=== PATIENT | male | born 1985 | race Caucasian/White ===

== ENCOUNTER 2019-08-09 05:19 | Inpatient (IN) ==
--- NOTE | 2019-08-09 06:15 | PROVIDER DOCUMENTATION ---
HPI-Abdominal Pain/GI Problem - General Chief Complaint: General Adult Stated Complaint: HEADACHE Time Seen by Provider: 08/09/19 06:09 Source: patient Allergies/Adverse Reactions: Patient Allergies Allergy/AdvReac Type Severity Reaction Status Date / Time No Known Allergies Allergy Verified 08/09/19 06:24 Home Medications: Home Medication List Medication Instructions Recorded Confirmed Last Taken Type Amphetamine Salts [Adderall] 20 mg PO BID 08/09/19 08/09/19 Unknown History - History of Present Illness-ABD Nature of Presenting Problems: Patient is a 34 year old white male complaining of nausea,vomiting, and diarrhea for past 3-4 days. patient noticed that he is now itching all over and his eyes look yellow. Denies abdominal pain. Review of Systems - Adult - REVIEW OF SYSTEMS - ADULT Constitutional: denies: chills, fever Eyes: reports: see HPI Ears, Nose, Mouth & Throat: reports: no symptoms reported Cardiovascular: denies: chest pain Respiratory: denies: shortness of breath Gastrointestinal: reports: diarrhea, nausea, vomiting. denies: abdominal pain Genitourinary: denies: dysuria Musculoskeletal: reports: no symptoms reported Integumentary: reports: see HPI, itching Neurological: reports: headache/migraines Psychiatric: reports: anxiety Endocrine: reports: no symptoms reported Hematologic/Lymphatic: reports: no symptoms reported Allergic/Immunologic: reports: no symptoms reported All Other Systems: Reviewed and Negative Past History - Adult - PAST MEDICAL HISTORY-ADULT Review of Records: reports: Old Records Reviewed, Nursing Assessment Review, Medications Reviewed, Social history reviewed & non-contributory. Major Childhood Illnesses: reports: denies history Cardiovascular: reports: HTN, hyperlipidemia Gastrointestinal: reports: denies history Genitourinary: reports: denies history Musculoskeletal: reports: denies history Neurological: reports: denies history Psychiatric: reports: depression, other (ADHD) - PRIOR SURGERIES/PROCEDURES Surgical/Procedure History: reports: hernia repair, orthopedic (extremity) (shoulder sx) - IMMUNIZATION STATUS Childhood Immunizations: See Nurse Assessment Flu Vaccine: See Nurse Assessment - FAMILY HISTORY Family History: reviewed, not pertinent - SOCIAL HISTORY Smoking: less than 1 pack/day Substance Use: denies Alcohol Use Frequency: occasionally Living Situation: family Physical Exam-General - PHYSICAL EXAM-ADULT Initial Vital Signs Reviewed: Yes - CONSTITUTIONAL General Appearance: alert, no apparent distress - EYES Eyes: PERRL/EOMI, scleral icterus - HEAD, EARS, NOSE, MOUTH & THROAT HENMT: normocephalic/atraumatic, moist mucous membranes - NECK Neck: non-tender, full range of motion, supple - RESPIRATORY Respiratory: lungs clear - CARDIOVASCULAR Cardiovascular: regular rate, rhythm - GASTROINTESTINAL (ABDOMEN) Abdominal Exam: normal bowel sounds, non tender, soft - MUSCULOSKELETAL Back Exam: no CVA tenderness, no vertebral tenderness Extremity: normal range of motion, non-tender - SKIN Integumentary: normal turgor, warm/dry - NEUROLOGIC Neurologic: grossly normal - PSYCHIATRIC Psych/Mental Status: normal thought content, oriented x 3, anxious Progress - PLAN OF CARE/RESULTS Progress/Plan/Lab Results: Vital Signs - 8 hr 08/09/19 05:49 Temperature 97.6 F Pulse Rate 78 Respiratory Rate 18 Blood Pressure 136/95 O2 Sat by Pulse Oximetry 98 Result Diagrams: 08/10/19 06:50 08/10/19 06:50 - CONSULTS/PCP/HOSPITALIST Notification #1 *Consult/PCP/Hospitalist*: Dr Salazar Time Discussed: 09:45 Consult Disposition: Admit - CHANGE OF SHIFT REPORT (ED Provider) 1 Report Given and Care Transferred to:: Dr. Angel Time of Transfer: 07:00 Items Pending: Labs Departure - Departure Date of Disposition Decision: 08/09/19 Time of Disposition Decision: 10:17 DIAGNOSIS: Transaminitis, Cholecystitis, Nausea and vomiting, Jaundice Disposition: ADMITTED INPATIENT 09 Certified Medical Emergency: Emergent Condition: Stable - Critical Care Note This patient required my direct & personal management of CC.: No Attestation - Physician/ JOHN Attestation Patient care was provided by Advanced Practice Provider:: No The physician spent face to face time with patient:: Yes Advanced Practice Provider documentation review:: Supervising physician onsite and consulted in the evaluation and care of this patient. The physician did have a face to face encounter with the patient.
[2019-08-09] MEDS ORDERED: NS 1,000 ML IV ONE (06:56)
[2019-08-09] MEDS ORDERED: ZOFRAN IV ONE (06:56)
[2019-08-09 07:26] LABS: BASO# 0.03 X1000 (0.0-0.2); BASO% 0.7 % (0.0-0.8); EOS# 0.07 X1000 (0.0-0.7); EOS% 1.7 % (0.0-10.0); HEMATOCRIT 47.2 % (42.0-52.0); HEMOGLOBIN 15.3 g/dL (14.0-18.0); IMM GRAN# 0.01 X1000 (0.0-0.04); IMM GRAN% 0.2 % (0.0-0.5); LYMPH# 1.12 X1000 (1.2-3.4); LYMPH% 26.7 % (20.5-51.1); MCH 29.4 PG (27-31); MCHC 32.4 g/dL (33-37); MCV 90.8 FL (81-99); MONO# 0.67 X1000 (0.11-0.59); MPV 9.7 FL (7.4-10.4); NEUT# 2.29 X1000 (1.4-6.5); NEUT% 54.7 % (42.2-75.2); PLT 237 X1000 (130-400); RDW 14.4 % (11.5-14.5); WBC 4.19 X1000 (4.8-10.8)
[2019-08-09 07:29] LABS: INR 0.9; PROTIME 12.6 Seconds (11.0-16.0)
[2019-08-09 07:30] LABS: PTT 32.3 Seconds (22.3-41.8)
[2019-08-09 07:37] LABS: AGAP 11; ALBUMIN 3.6 g/dL (3.5-5.0); ALKALINE PHOSPHATASE 164 U/L (32-122); BUN 9 mg/dL (8-22); CALCIUM 8.9 mg/dL (8.8-10.2); CHLORIDE 102 mmol/L (98-107); COSMO 276; CREATININE 0.7 mg/dL (0.7-1.2); ESTIMATED GFR > 60; GLUCOSE 92 mg/dL (70-104); POTASSIUM 4.5 mmol/L (3.5-5.1); SODIUM 139 mmol/L (136-145); TCO2 26 mmol/L (25-35); TOTAL PROTEIN 7.9 g/dL (6.3-8.3)
[2019-08-09 07:46] LABS: GOT 1830 U/L (10-34); GPT 2816 U/L (10-44)
[2019-08-09 08:56] LABS: URINE SOURCE CLEAN CATCH
--- NOTE | 2019-08-09 08:56 | Diag Imaging Result Doc PS360 ---
EXAM: CT ABD/PELVIS W/IV CONT ONLY HISTORY: jaundiced, elevated tbili TECHNIQUE: This exam was performed using automated exposure control, adjustment of mA or kV according to patient size, and/or use of iterative reconstruction technique. COMPARISON: None. FINDINGS: Lung bases: There is linear atelectasis or scarring posterior left lower lobe. Hepatobiliary: Normal liver attenuation. No intrahepatic or extrahepatic biliary ductal dilatation is identified. There is mild periportal edema. Mild hepatomegaly. There is a hyperdense somewhat serpiginous filling defect within the gallbladder. No calcified gallstones. There are prominent periportal lymph nodes. No suspicious masses are appreciated. There is a small amount of free fluid within the anterior pararenal space. There is fluid or soft tissue stranding surrounding the descending duodenum. Spleen is enlarged measuring 14.3 cm maximal dimension. No focal splenic masses are appreciated. Pancreas/Adrenal glands/: Normal size and enhancement. No cysts or solid masses are appreciated. Kidneys: No nephrolithiasis or hydronephrosis is appreciated. Normal bilateral enhancement. No suspicious masses. Retroperitoneum: Normal caliber aorta. No lymphadenopathy. Bowel/Mesentery: There prominent gastrohepatic ligament lymph nodes. Normal caliber small and large bowel loops. No evidence for obstruction. . No mesenteric lymphadenopathy is appreciated. The mesentery. Vasculature appears congested. Appendix: Normal. No evidence for acute appendicitis. Pelvis: Reproductive organs show no acute abnormality. There is evidence of prior inguinal hernia repair Urinary bladder is unremarkable. There is a bulging vertebral body endplate endplate/disc calcification L1/L2 with spinal stenosis. There are bridging osteophytes bilateral sacroiliac joints. IMPRESSION: 1.Mild hepatomegaly. Splenomegaly. Suspect portal hypertension. 2.Filling defect with in the gallbladder. Correlate with ultrasound. 3.Small amount of free fluid within the anterior pararenal space. 4.Periduodenal free fluid versus duodenitis. 5.Prominent periportal and gastrohepatic ligament lymph nodes. 6.Congested vessels within the mesentery. 7.Lumbar disc disease L1/L2 with spinal stenosis. Electronically signed by Rubina Jackson 08/09/2019 8:54 AM
[2019-08-09 09:04] LABS: BILIRUBIN URINE SMALL (NEGATIVE); BLOOD URINE NEGATIVE (NEGATIVE); COLOR YELLOW; GLUCOSE URINE NEGATIVE (NEGATIVE); KETONE URINE NEGATIVE (NEGATIVE); LEUKOCYTES URINE NEGATIVE (NEGATIVE); NITRITE URINE NEGATIVE (NEGATIVE); PH URINE 6.5; PROTEIN URINE TRACE mg/dL (NEGATIVE); SP GRAVITY URINE 1.051; TURBIDITY URINE CLEAR (CLEAR); UROBILINOGEN URINE NORMAL (NORMAL)
[2019-08-09 09:06] LABS: UR EPITHELIAL CELLS <10 /HPF (<10); URINE RBC <10 /HPF (<10); URINE WBC <10 /HPF (<10)
[2019-08-09 09:19] LABS: UR AMPHETAMINES QUAL NONE DETECTED (NONE DETECT); UR BARBITUATES QUAL NONE DETECTED (NONE DETECT); UR BENZODIAZEPIN QUAL NONE DETECTED (NONE DETECT); UR CANNABINOIDS QUAL PRESUMPTIVE POSITIVE (NONE DETECT); UR COCAINE QUAL NONE DETECTED (NONE DETECT); UR METHADONE QUAL NONE DETECTED (NONE DETECT); UR METHAMPHETAMINE QUAL NONE DETECTED (NONE DETECT); UR OPIATES QUAL NONE DETECTED (NONE DETECT); UR OXYCODONE QUAL NONE DETECTED (NONE DETECT); UR PCP QUAL NONE DETECTED (NONE DETECT); UR PROPOXYPHENE QUAL NONE DETECTED (NONE DETECT); UR TCA QUAL NONE DETECTED (NONE DETECT)
--- NOTE | 2019-08-09 09:35 | Diag Imaging Result Doc PS360 ---
US GB < RUQ (LIMITED) - 08/09/2019 INDICATION: jaundiced, elevated tbili TECHNIQUE: Rcih scale, color Doppler, and duplex evaluation of the abdomen was performed. Standard protocol. COMPARISON: None FINDINGS: The liver appears normal in size and echotexture. Portal triads appear slightly prominent which may be related to hepatitis. Correlate clinically. There are at least three small hyperechoic liver lesions. The largest measures 1.2 x 1.3 x 1.2 cm.. The IVC and aorta appear normal. The pancreas is obscured by bowel gas artifact. The gallbladder appears somewhat contracted. The gallbladder fossa appears complex with echogenic material and minimal simple fluid appreciated. No calcified gallstones are identified. The common bile duct measures 5 mm. The portal vein is patent with hepatopetal flow. The right kidney appears normal. There is no hydronephrosis. IMPRESSION: 1.Markedly abnormal gallbladder fossa with complex echoes, essentially no simple appearing fluid, and no definite stones. Findings are worrisome for atypical cholecystitis. Correlate clinically. Recommend surgical consultation. 2.Nonspecific small echogenic liver lesions.. 3.Prominent periportal triads may be seen with hepatitis. Correlate clinically. Electronically signed by Rubina Jackson 08/09/2019 9:32 AM
[2019-08-09] MEDS ORDERED: ZOSYN 4.5 GM in NS 100 ML IV SCH (09:45)
[2019-08-09] MEDS ORDERED: ZOFRAN IV PRN (10:14)
[2019-08-09] MEDS: ZOSYN 3.375 GM in NS 50 ML IV SCH ×2 (10:53→16:43)
[2019-08-09] MEDS ORDERED: SODIUM CHLORIDE 0.9% INJ SCH (13:00)
--- NOTE | 2019-08-09 14:15 | HISTORY AND PHYSICAL ---
CHIEF COMPLAINT: Generalized itching, headache, nausea, vomiting, and diarrhea with terrance-colored stools. HISTORY OF PRESENT ILLNESS: This is a 34-year-old gentleman with a history of ADHD and prior elevation of LFTs. He comes in complaining of having a headache that he feels could be sinusitis that he states is behind his eyeballs, feels like a pressure type pain. He has had some increased postnasal drip. He states that he has also had nausea, vomiting, anorexia, and just a feeling of fullness in his abdomen. He reports being told by His ,about 3 days ago, that his eyes were yellow. He reports loose stools that were terrance-colored over the last 48 hours. He denied any abdominal pain, any black or bloody vomitus or stools. The patient states that in the last 3 to 4 years, he saw his then primary care provider, Dr. Alexander Scott, and he was put on a statin, but he stated that his liver enzymes elevated. Therefore, the statin was DCd. He has not followed up with a physician since. PAST MEDICAL HISTORY: 1. ADHD. 2. Hypertension. 3. Hyperlipidemia. 4. History of migraines. 5. Medical noncompliance. PAST SURGICAL HISTORY: Hernia repair and shoulder surgery. SOCIAL HISTORY: He smokes about 1/2 pack a day. He drinks alcohol on a social basis with his last drink being almost 2 weeks ago. He denies any illicit drug use, although his urine drug screen was positive for cannabinoids. He is . 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 ALLERGIES: No known drug allergies. HOME MEDICATIONS: He is taking none at the present. He states he was recently prescribed Adderall 20 mg p.o. b.i.d., although he has not started it yet. FAMILY HISTORY: Positive for diabetes in his sisters and hypertension in his parents. REVIEW OF SYSTEMS: Discussed with the patient with pertinent positives stated in the HPI. He denied any syncope or dizziness, any chest pain or palpitations, shortness of breath or cough, any fevers or chills, any constipation, any black or bloody vomitus or stools, any hematuria, dysuria, frequency, urgency. PHYSICAL EXAMINATION: GENERAL: This is a 34-year-old gentleman who is lying on the stretcher in the emergency room in no distress. VITAL SIGNS: Blood pressure is 149/99 with heart rate of 76, respirations are 18, temperature is 98.2 degrees with room air saturations 98% to 99%. HEENT: Eyes: Pupils are equal, round, react to light. EOMs are intact. Sclerae are anicteric. HEENT: Head is normocephalic, atraumatic. Mucous membranes are moist. NECK: Supple. Trachea midline. No JVD. CARDIOVASCULAR: Regular rate and rhythm. S1 and S2 appreciated. EXTREMITIES: He has no lower extremity edema. Calves are reported nontender bilaterally with peripheral pulses palpable x4 extremities. PULMONARY: Breath sounds are clear with no increased work of breathing noted. Chest rises and falls symmetric respiration. Chest wall is nontender to palpation gastrointestinal. GASTROINTESTINAL: Abdomen is soft, nontender, nondistended with bowel sounds in all 4 quadrants. NEUROLOGIC: He is alert and oriented x3. SKIN: Warm and dry. LABS: WBC is 4.1 with hemoglobin 15.3, hematocrit 47.2, platelets of 237,000. Sodium is 139, potassium 4.5, BUN 9, creatinine 0.7 with a glucose of 92. Total bilirubin is 5.6 with AST of 1830, ALT 2816, with alkaline phosphatase 164. Urine drug screen is presumptive positive for cannabinoids. Blood alcohol revealed none detected. DIAGNOSTICS: 1. CT of the abdomen and pelvis revealed mild hepatomegaly and splenomegaly with suspected portal hypertension, filling defect in the gallbladder. Small amount of free fluid within the anterior pararenal space, magno-duodenal free fluid versus duodenitis. Prominent periportal and gastrohepatic ligament lymph nodes, congested mesenteric vessels, spinal stenosis at L1 and L2. 2. Abdominal ultrasound, markedly abnormal gallbladder fossa with complete complex echoes, essentially no simple appearing fluid and no definite stones. Findings are worrisome for atypical cholecystitis. There at least 3 small hyperechoic liver lesions. The largest measures 1.2 x 1.3 x 1.2. 3. Prominent periportal triad heads may be seen with hepatitis. ASSESSMENT AND PLAN: 1. Elevated liver function tests. 2. Possible atypical cholecystitis. 3. Nausea and vomiting. 4. Jaundice. 5. Questionable hepatitis on ultrasound. 6. Liver masses x3. PLAN: 1. The patient will be n.p.o. 2. HIDA scan will be ordered. 3. We will obtain blood cultures. Start Zosyn for antibiotic coverage. 4. Consult Gastroenterology. 5. Check a CBC and CMP in the morning. 6. We will continue IV hydration 7. Zofran for nausea. 8. Protonix IV The plan was discussed with Dr. Salazar. Further treatments pending hospital course. The patient will be admitted and transferred to [facility] [place] for GI following. Dictated by PALMIRA Aponte for Elan Vasquez MD cc: PALMIRA Aponte MD [facility]
--- NOTE | 2019-08-09 15:15 | Diag Imaging Result Doc PS360 ---
EXAM: HIDA SCAN W/O EJECT. FRACTION 08/09/2019 HISTORY: acute cholecystitis TECHNIQUE: Hepatobiliary scan, 5.4 mCi of technetium 99m Choletec COMMENT: There is no excretion of activity into the biliary tract or gallbladder at one hour 30 minutes. Given the appearance of the gallbladder and common bile duct on ultrasound and CT and the periportal edema seen on the CT scan, the possibility of hepatitis and cholestatic jaundice is suggested. IMPRESSION: No visualization of activity outside of the liver. The findings were discussed with Elan Salazar MD at 08/09/2019 3:13 PM. Electronically signed by Chico Tate 08/09/2019 3:13 PM
[2019-08-09] MEDS: NS 1,000 ML IV SCH (16:43)
[2019-08-09] MEDS: PROTONIX IV SCH (16:43)
[2019-08-09] MEDS ORDERED: MOTRIN PO ONE (17:03)
--- NOTE | 2019-08-09 21:54 | PROGRESS NOTE ---
DATE: 08/09/2019 INTERVAL HISTORY: Mr. Rachel was transferred from [facility] for evaluation of abnormal liver function test. SUBJECTIVE: Mr. Rachel denies new complaints except headache, retro-orbital pain, occasional nausea and generalized feeling of unwell. VITALS: Temperature of 97.6 degrees, pulse 73, respiratory 18, blood pressure 141/93. He is saturating 98% on room air. PHYSICAL EXAMINATION: General: Not in acute distress. HEENT: Oral cavity is moist. He has marked scleral icterus. Lungs: Air entry bilaterally equal. No wheeze, rhonchi or crackles. Heart: S1 normal. No murmur or gallop. Abdomen: Soft, nontender. Extremity: No lower extremity edema. Neurologic: He is alert orient x3. LABS: Suggestive of total bilirubin of 5.6, direct of 6.1, though it was collected after initial blood test. AST of 1800, ALT of 2800. Urine was positive for bilirubin. Urine cannabis was positive. The patient denies using any cannabis substances. ASSESSMENT AND PLAN: Acute liver injury leading to acute hepatitis, cholestatic pattern with elevated direct bilirubin. The patient denies using intravenous recreational substances, taking herbal medications, taking [id number] medicines, any muscle supplements or protein supplements. He recently traveled to [place] in June 2019 but denies having sick contacts around him. He denies any known history of hepatitis in the past, though, previously he did have a slightly abnormal liver function test about a couple of years ago, though, in our system his liver function tests in 2017 were normal. PLAN: Follow up hepatitis panel, antinuclear antibody, anti-smooth muscle antibody, ultrasound suggested intrahepatic cholestatic pattern. Depending on the course, HIV testing should be considered. I will follow up with liver function test tomorrow. Continue IV fluids. Plan of care discussed with Mr. Rachel and his questions have been answered. cc: MD MIREILLE Stephens
[2019-08-10] MEDS: NS 1,000 ML IV SCH ×2 (06:37→21:20)
[2019-08-10 07:52] LABS: BASO# 0.04 X1000 (0.0-0.2); BASO% 0.9 % (0.0-0.8); EOS% 2.2 % (0.0-10.0); HEMOGLOBIN 14.7 g/dL (14.0-18.0); LYMPH% 28.9 % (20.5-51.1); MCH 29.1 PG (27-31); MCV 91.1 FL (81-99); MONO# 0.72 X1000 (0.11-0.59); MPV 9.8 FL (7.4-10.4); NEUT# 2.34 X1000 (1.4-6.5); PLT 239 X1000 (130-400); RBC 5.05 XMIL (4.7-6.1); RDW 14.8 % (11.5-14.5)
[2019-08-10 08:15] LABS: AGAP 10; ALB/GLOB RATIO 0.9; ALBUMIN 3.4 g/dL (3.5-5.0); ALKALINE PHOSPHATASE 158 U/L (32-122); BUN 9 mg/dL (8-22); CALCIUM 8.9 mg/dL (8.8-10.2); CHLORIDE 101 mmol/L (98-107); COSMO 271; CREATININE 0.9 mg/dL (0.7-1.2); ESTIMATED GFR > 60; GLUCOSE 74 mg/dL (70-104); POTASSIUM 4.5 mmol/L (3.5-5.1); SODIUM 137 mmol/L (136-145); TCO2 26 mmol/L (25-35)
[2019-08-10 08:41] LABS: GOT 1104 U/L (10-34); GPT 2075 U/L (10-44)
--- NOTE | 2019-08-10 12:42 | Diag Imaging Result Doc PS360 ---
EXAM: MRI MRCP (ABD W/O CONTRAST) 08/10/2019 HISTORY: Abnormal LFTs, HIDA shows no excretion in CBD TECHNIQUE: Axial T2, in and out of phase T1, water 3-D, coronal T2 and water 3-D and radial T2. COMMENT: There is an apparent cyst in the posterior right hepatic lobe. There is another anteriorly on image 17 of the axial T2 series. There is no evidence of dilatation of the pancreatic duct which measures under 2 mm in diameter. The common bile duct measures less than 4 mm and the common hepatic duct has a maximum caliber of 5 mm. There is no evidence of filling defects. There is a small amount of ascites in the right paracolic gutter. IMPRESSION: No evidence of biliary obstruction. Other nonacute findings as described above. Electronically signed by Chico Tate 08/10/2019 12:39 PM
[2019-08-10] MEDS: PROTONIX IV SCH (13:30)
--- NOTE | 2019-08-10 13:50 | GASTROENTEROLOGY CONSULTATION ---
DATE: 08/10/2019 REASON FOR CONSULTATION: Elevated LFTs. HISTORY OF PRESENT ILLNESS: Mr. Rachel is a 34-year-old male with a history of hypertension, ADHD, anxiety and depression. He was at [facility] yesterday and was later sent to [facility]. He complained that 5 days back he noticed that his urine was dark orange in color. He was fatigued, weak, having migraine type headaches and on Friday he noticed that his stools were storey colored. He also started noticing that his eyes were yellow in color. The patient denies any abdominal pain. He did mention that he had one episode of nausea and vomiting when he was in the shower and it was just whatever food he had eaten had come out. The patient did mention that he had a cut on his right forearm from the aimee corner of the bookshelf, but he said he checked with his doctor andit was not anything infectious. The patient mentioned that somewhere around 2 years back, he was put on a statin due to his high cholesterol, but he stated that his liver enzymes started to get elevated and then he had to stop taking the statins. He has not followed up for any of the blood work with his doctor of the GI doctor. The patient does mention that sometimes he feels like his stomach is absolutely full. He has denied any constipation. He says his bowel movements are regular. He has denied noticing any blood in his stool or blood in his vomit. PAST MEDICAL HISTORY: Hypertension, ADHD, high cholesterol, anxiety, depression, history of migraines. PAST SURGICAL HISTORY: Two hernia repairs and one right shoulder repair. FAMILY HISTORY: Positive for diabetes and hypertension. SOCIAL HISTORY: The patient is single, lives with his girlfriend. Has 1 kid. Smokes pot once a day, or 4 to 5 cigarettes on a daily basis. Drinks alcohol occasionally. He works at [employer]. He has denied doing any IV drug use. ALLERGIES: No known drug allergies. HOME MEDICATIONS: Adderall 20 mg p.o. twice a day. REVIEW OF SYSTEMS: As per HPI. Otherwise, 12 point review of system is negative. PHYSICAL EXAMINATION: Vital Signs: Temperature 98.3 degrees, pulse 87, blood pressure 142/96, oxygen saturation 100% on room air. The patient's weight is 190 pounds, BMI is 27.3 kg/m2. General: He is alert, oriented x3. Answering questions appropriately and in no acute distress. HEENT: Pale conjunctivae. Sclerae icterus. PERRL. Neck: Supple. Lungs: Clear to auscultation. Cardiovascular: Regular rate and rhythm. Abdomen: Soft, nontender, mildly distended. Active bowel sounds heard in all 4 quadrants. Extremities: No clubbing, no cyanosis, no edema. Pedal pulses 2+ present bilaterally. Neurologic: He is alert and oriented x3. Nonfocal. Cranial nerves 2-12 grossly intact. LABORATORY DATA: WBCs of 4.50, RBC 5.05, hemoglobin is 14.7, hematocrit is 46.0, platelet count is 239,000. Sodium 137, potassium 4.5, chloride 101, carbon dioxide 26, anion gap 10, BUN 9, creatinine 0.9, glucose 74, calcium is 8.9. Total bilirubin is 7.70 AST 1104, ALT 2075, alkaline phosphatase 158, albumin 3.4, and lipase 22. Urinalysis has shown trace of protein, small amount of bilirubin. The patient's toxicology report has shown he has presumptive positive for cannabinoids. His RAJ screen with reflex antibodies was negative. IMAGING: The patient's abdomen and pelvis CT yesterday showed mild hepatomegaly, splenomegaly, suspect portal hypertension, filling defect within the gallbladder, small amount of free fluid within the anterior pararenal space, periduodenal free fluid versus duodenitis, prominent periportal and gastrohepatic ligament lymph nodes, congested vessels within the mesentery, and lumbar disk disease L1/L2 with spinal stenosis. The patient's abdominal ultrasound showed markedly abnormal gallbladder foci with complex echoes, essentially no simple-appearing fluid and no definite stones. Nonspecific small echogenic liver lesions. Prominent periportal triad may be seen with hepatitis. The patient's HIDA scan showed no visualization of activity outside of the liver. His MRCP has shown no evidence of biliary obstruction. IMPRESSION AND PLAN: - Acute hepatitis A - Abnormal LFTs - N/V - Abdominal pain - Benign hepatic cysts PLAN: Mr. Rachel is a 34-year-old male with a history of hypertension and ADHD. GI has been consulted for his elevated liver function tests. The patient's hepatitis panel has been pending. The patient is currently on IV fluids normal saline at 75 mL. He is on Protonix 40 mg IV daily. His MRCP today showed that he does not have any biliary obstruction. Patient's Hep B surface , Hep B core and Hep C antibody are non reactive. His Hep A viral antibody is reactive. We will provide conservative care and follow the plan of care per PCP. This plan was discussed with Dr. Pate. Thank you for your consult. Please call us for any further questions or concerns. Dictated by PALMIRA Louis for Lavon Pate MD Physician Attestation I have seen and examined the patient. I have discussed and reviewed the note by Talia CHAVIS and agree with findings and plan as documented. In brief, Mr. Rachel is a 34 year old man who presented with abnormal LFTs and jaundice found to have acute hepatitis A. LFTs downtrending. MTDD
--- NOTE | 2019-08-10 13:52 | PROGRESS NOTE ---
DATE: 08/10/2019 INTERVAL HISTORY: Patient headache and nausea much improved. Really no abdominal pain. No acute events overnight, no new complaints. REVIEW OF SYSTEMS: Twelve point review of systems negative except as per interval history. LABS: WBC 4.5, hemoglobin 14.7, hematocrit 46.0, platelets 239,000. Sodium 137, potassium 4.5, BUN 9, creatinine 0.9, total bilirubin 7.7, AST 1104, ALT 2075, alkaline phosphatase 158. Urinalysis essentially unremarkable. UDS positive only for cannabinoids. Alcohol level negative, RAJ screen negative. IMAGING: CT abdomen, pelvis with mild hepatomegaly and splenomegaly suggesting portal hypertension, filling defect in the gallbladder, small amount of free fluid in the abdomen, prominent periportal and gastrohepatic lymph nodes, congestive vessels in the mesentery. Abdominal ultrasound with abnormal gallbladder fossa with complex echoes. No definite stones, small echogenic liver lesions, prominent periportal triads which could be related to hepatitis. HIDA scan showing no activity outside the liver. MRCP showing no evidence biliary obstruction, benign-appearing hepatic cyst noted, small amount ascites. VITALS: T-max 98.3 degrees, pulse 87, respirations 23, blood pressure 142/96, O2 saturation 100% on room air. PHYSICAL EXAMINATION: General: No acute distress. Vitals as above. HEENT: Normocephalic, atraumatic. Moist mucous membranes. No cervical adenopathy. Cardiovascular: Regular rate and rhythm. No murmurs noted. Pulmonary: Clear to auscultation bilaterally. No wheezing, rales or rhonchi. Abdomen: Soft, nontender, nondistended. Bowel sounds positive, slightly enlarged liver. Extremities: Peripheral pulses intact. No clubbing or cyanosis. Neurologic: Cranial nerves grossly intact. No focal deficits. Psychiatric: Normal mood and affect, awake, alert, oriented x3. ASSESSMENT AND PLAN: 1. Hepatitis. Etiology not entirely certain. Pretty significantly elevated bilirubin, some evidence of portal hypertension suggesting some degree of chronicity. Imaging without any evidence of obstruction and patient without any abdominal pain despite the suggestion of possible atypical cholecystitis on ultrasound. AST and ALT seem to be trending down rapidly. Bilirubin a little higher up but it may just be lagging behind. Patient denies any IV drug use and urine drug screen positive only for marijuana which patient admits to. No recent new tattoos. GI consulted, will see what they recommend as far as further workup for this. 2. Migraine headaches improved. 3. Hypertension. Blood pressure only mildly elevated. Will hold off on starting anything for now. 4. Hyperlipidemia. Patient with hyperlipidemia by history but not taking anything currently, cholesterol panel pending. 5. Attention deficit hyperactivity disorder reportedly on Adderall at home but urine drug screen negative. Will ask patient if he is still taking that. 6. Disposition. Some abnormalities on imaging that I am not quite sure what to make of. Will see what GI says and go from there but with his AST and ALT trending down I am hoping that tomorrow his bilirubin will also begin to come down and whatever the cause it may be improving.
[2019-08-10 15:42] LABS: HEPATITIS PROFILE ACUTE SEE COMMENTS
[2019-08-10] MEDS ORDERED: TORADOL IV PRN (17:02)
[2019-08-10] MEDS ORDERED: BENADRYL PO ONE (23:45)
[2019-08-11 08:33] LABS: BASO# 0.03 X1000 (0.0-0.2); BASO% 0.7 % (0.0-0.8); EOS% 2.3 % (0.0-10.0); HEMATOCRIT 44.4 % (42.0-52.0); HEMOGLOBIN 14.6 g/dL (14.0-18.0); LYMPH# 1.57 X1000 (1.2-3.4); LYMPH% 35.8 % (20.5-51.1); MCH 29.8 PG (27-31); MCHC 32.9 g/dL (33-37); MCV 90.6 FL (81-99); MONO# 0.67 X1000 (0.11-0.59); MONO% 15.3 % (1.7-9.3); MPV 9.6 FL (7.4-10.4); NEUT# 2.02 X1000 (1.4-6.5); NEUT% 45.9 % (42.2-75.2); PLT 230 X1000 (130-400); RDW 14.8 % (11.5-14.5); WBC 4.39 X1000 (4.8-10.8)
[2019-08-11 09:16] LABS: AGAP 11; ALB/GLOB RATIO 0.8; ALBUMIN 3.1 g/dL (3.5-5.0); ALKALINE PHOSPHATASE 148 U/L (32-122); BUN 7 mg/dL (8-22); CALCIUM 8.8 mg/dL (8.8-10.2); CHLORIDE 101 mmol/L (98-107); COSMO 271; CREATININE 0.9 mg/dL (0.7-1.2); ESTIMATED GFR > 60; GLUCOSE 76 mg/dL (70-104); GOT 488 U/L (10-34); POTASSIUM 5.4 mmol/L (3.5-5.1); SODIUM 137 mmol/L (136-145); TCO2 25 mmol/L (25-35); TOTAL BILIRUBIN 8.58 mg/dL (0.20-1.00); TOTAL PROTEIN 7.2 g/dL (6.3-8.3)
[2019-08-11 09:50] LABS: GPT 1400 U/L (10-44)
[2019-08-11 11:52] VITALS: BP 147/92
--- NOTE | 2019-08-11 13:24 | GASTROENTEROLOGY PROGRESS NOTE ---
DATE: 08/11/2019 SUBJECTIVE: Mr. Rachel is a 34-year-old male. He is sitting in bed. The patient has denied any abdominal pain, nausea, vomiting and denied having any bowel movements today. OBJECTIVE: Vital Signs: Temperature 98 degrees, pulse 71, respirations 20, blood pressure 147/92, oxygen saturation 100% on room air. The patient's weight is 190 pounds. BMI is 27.3 kg/m2. General: He is alert, oriented x3, in no acute distress. HEENT: Pale conjunctivae. scleral icterus. PERRL. Neck: Supple. Lungs: Clear to auscultation. Cardiovascular: Regular rate and rhythm. Abdomen: Soft, nontender, mildly distended. Active bowel sounds heard in all 4 quadrants. Extremities: No clubbing, no cyanosis, no edema. Pedal pulses 2+ present bilaterally. Neurologic: He is alert, oriented x3. LABS: WBCs of 4.39, RBC 4.90, hemoglobin is 14.6, hematocrit is 44.4, platelet count is 230,000. Sodium 137, potassium 5.4, chloride 101, carbon dioxide 25, anion gap 11, BUN 7, creatinine is 0.9, glucose 76, calcium 8.8, total bilirubin is 8.58, AST 488, ALT is 1400, alkaline phosphatase is 148, albumin is 3.1. The patient's hepatitis panel has shown that his hepatitis B surface antigen is nonreactive. Hepatitis B core antibody nonreactive. Hepatitis C antibody is nonreactive. Hepatitis A viral antibody is reactive. IMPRESSION AND PLAN: - Acute hepatitis A - Abnormal LFTs - N/V - resolved - Abdominal pain - Hyperkalemia - Benign hepatic cysts PLAN: Mr. Rachel is a 34-year-old male with a history of hypertension and ADHD, GI is following him for his liver function enzymes. His liver function enzymes have been trending downward but they are still elevated. The patient's hepatitis A viral antibody is reactive. The patient has got acute hepatitis A. The patient is currently receiving IV fluids normal saline at 75 mL. He is receiving antiemetic Zofran for his nausea and on PPIs daily. The patient does have discharge orders to go home. We will follow him up as an outpatient in 3 to 4 weeks. Educated patient on preventing the spread of the virus by maintaining proper hand hygiene at all time, advised to wash fruits and vegetables before consuming, avoid eating raw meats and seafood, washing hands thoroughly after using the bathroom, having safe protected sex and avoid sharing needles. This plan was discussed with Dr. Pate. Please call us for any further questions or concerns. Dictated by PALMIRA Louis for Lavon Pate MD Physician Attestation I have seen and examined the patient. I have discussed and reviewed the note by Talia CHAVIS and agree with findings and plan as documented. In brief, Mr. Rachel is a 34 year old man who presented with abnormal LFTs and jaundice found to have acute hepatitis A. He has had multiple imaging studies of the liver. MRCP showed benign hepatic cysts. LFTs are improving. Tbili is lagging. She denies any symptoms. Follow-up with Dr. Pate in 4-6 weeks MTDD
--- NOTE | 2019-08-12 08:30 | DISCHARGE SUMMARY ---
ADMISSION DATE: 08/09/2019 DISCHARGE DATE: 08/11/2019 CONSULTATION: GI, Dr. Pate DISCHARGE DIAGNOSES: 1. Acute hepatitis. 2. Hepatitis A infection, acute. 3. Migraine headaches. 4. Hypertension. 5. Attention deficit disorder. HOSPITAL COURSE: Patient presented initially with primary complaint of headache. He has had history of migraines, but he had not had one in several months. He also said that his had told him that his eyes were yellow and he had a little bit of diarrhea. On initial evaluation, he was found to have markedly elevated LFTs with a bilirubin of 5.6, AST 1800, ALT 2800, alkaline phosphatase 164. Initial imaging showed some hepatomegaly, splenomegaly and possible filling defect in the gallbladder. Ultrasound was then performed which showed abnormal gallbladder fossa with complex echoes and possible small nonspecific liver lesions. GI was involved and obtained MRCP. Did not show any evidence of biliary obstruction. All the ducts were normal size. The noted odd areas in the liver appeared to be benign cysts. Hepatitis panel came back with hepatitis A which was favored to be the cause of his acute hepatitis. His bilirubin did increase some to 8.5, but his AST, ALT and alkaline phosphatase trended down nicely. On discharge, AST was 488, ALT was 1400 and alkaline phosphatase was 148. After discussion with GI, it was felt that he was stable for discharge to follow up with them to recheck labs. Noted liver cyst did appear to be benign on MRCP, but given a slightly odd appearance on ultrasound, repeat imaging of some kind in 6 to 12 months to ensure stability would likely be a good idea. The patient's headache resolved with treatment of his migraine. It did not recur. He was tolerating diet well without any other issues. It was decided that he could discharge home to follow up with PCP and GI. DISCHARGE VITAL SIGNS: Temperature 98.0 degrees, pulse 71, respirations 20, blood pressure 147/92, O2 saturation 100% on room air. DISCHARGE DIET: Regular. Consider low fat if GI upset occurs. DISCHARGE MEDICATIONS: Home Adderall as previously prescribed. FOLLOWUP AND PLAN: The patient is discharging home to follow up with GI for a recheck of liver function test. Consider repeat imaging of liver in 6 to 12 months to ensure that likely benign liver cysts have not changed. TIME SPENT: Greater than 30 minutes spent counseling patient and arranging discharge. [facility]
== END 2019-08-11 13:16 | disposition home or self-care (01) | DRG 443 ==
LOC: P.ED 05:19 → SUATTDRO 05:20 → 3N 10:47
PROVIDERS: ATTEND Internal Medicine